=== PATIENT | female | born 1985 | race Caucasian/White ===

== ENCOUNTER 2017-04-19 01:51 | Emergency (ER) | payer MEDICAID ==
[~2017-04-19] VITALS: Ht 160 cm; Wt 77.5 kg
[~2017-04-19 01:51] MED LIST: NITR100C6 PO; PHEN-716 PO
[2017-04-19] MEDS ORDERED: ketorolac trometh. 30mg/ml inj. IM ONE (02:15)
[2017-04-19 02:17] LABS: URINE HCG POSITIVE (NEG)
[2017-04-19 02:18] LABS: CLARITY,URINE CLEAR (Clear); GLUCOSE, URINE NEGATIVE (Neg); KETONES,URINE NEGATIVE (Neg); LEUKOCYTE ESTERASE ,URINE NEGATIVE (Neg); NITRITES, URINE POSITIVE (Neg); OCCULT BLOOD,URINE NEGATIVE (Neg); PROTEIN,URINE NEGATIVE (Neg); UA COLLECTION TYPE CLN CATCH MIDSTREAM; UROBILINOGEN,URINE 0.2 E.U/dL (0.2-1.0)
[2017-04-19 02:19] LABS: COLOR,URINE DARK YELLOW (Yellow)
[2017-04-19 02:24] LABS: RBC,URINE NONE SEEN /HPF (0-2); SQUAMOUS EPITHELIAL CELL,UR MODERATE /LPF (FEW); WBC,URINE 0-4 /HPF (0-4)
[2017-04-19 02:25] LABS: BACTERIA,URINE 2+ /HPF (Neg)
[2017-04-19] MEDS ORDERED: ondansetron 4mg rapidly disintigrating tab PO ONE (02:25)
[2017-04-19 05:56] VITALS: BP 123/81
== END 2017-04-19 05:59 | disposition home or self-care (01) ==
LOC: ER 01:52
DX: O26.891 Other specified pregnancy related conditions, first trimester (principal); M54.5 Low back pain; R30.0 Dysuria; R11.0 Nausea; I10 Essential (primary) hypertension; E78.00 Pure hypercholesterolemia, unspecified; Z3A.01 Less than 8 weeks gestation of pregnancy; Z88.1 Allergy status to other antibiotic agents; Z88.2 Allergy status to sulfonamides; Z88.5 Allergy status to narcotic agent
CPT/HCPCS: 36415; 76801; 81001; 81025; 84702; 86900; 86901; 87088; 96372; 99285; J1885

== ENCOUNTER 2018-06-11 11:47 | Emergency (ER) | payer MEDICAID ==
[~2018-06-11] VITALS: Ht 160 cm; Wt 94.2 kg
[2018-06-11] MEDS ORDERED: CYCL-1 PO (13:23)
[2018-06-11] MEDS ORDERED: ketorolac trometh inj. 60 MG/2 ML VIAL IM ONE (13:50)
[2018-06-11] MEDS ORDERED: METH4TAB81 PO (13:50)
[2018-06-11] MEDS ORDERED: dexamethasone sod phosphate 10mg/ml inj IM STA (13:50)
[2018-06-11 14:30] VITALS: BP 133/83
== END 2018-06-11 14:31 | disposition home or self-care (01) ==
LOC: ER 11:47
DX: M54.5 Low back pain (principal); G43.909 Migraine, unspecified, not intractable, without status migrainosus; I10 Essential (primary) hypertension; E78.00 Pure hypercholesterolemia, unspecified; Z88.1 Allergy status to other antibiotic agents; Z88.6 Allergy status to analgesic agent; Z88.8 Allergy status to other drugs, medicaments and biological substances
CPT/HCPCS: 72100; 96372; 99283; J1100; J1885

== ENCOUNTER 2019-06-12 19:47 | Emergency (ER) | payer MEDICAID ==
[~2019-06-12] VITALS: Ht 160 cm; Wt 100.0 kg
[~2019-06-12 19:47] MED LIST changes: +CYCL-1 PO; +METH4TAB81 PO
[2019-06-12 19:51] VITALS: BP 160/108
--- NOTE | 2019-06-12 20:34 | NUR ---
PT C/O HEADACHE SINCE 299, +NAUSEA, "TICKLE IN THROAT", COUGH, NO RELIEF WITH OTC GENERIC HEADACHE MEDICATION, PT IS ALERT, RESP EVEN AND UNLABORED, SKIN P/W/D
[2019-06-12 20:36] LABS: BASOPHILS # (AUTO) 0.1 X10'3 (0-0.2); BASOPHILS % (AUTO) 0.8 % (0-1); EOSINOPHILS # (AUTO) 0.2 X10'3 (0-0.9); EOSINOPHILS % (AUTO) 3.5 % (0-6); HEMATOCRIT 42.7 % (35.0-45.0); HEMOGLOBIN 14.7 g/dl (12.0-16.0); LYMPHOCYTES # (AUTO) 1.3 X10'3 (1.1-4.8); LYMPHOCYTES % (AUTO) 19.6 % (21-51); MEAN CORPUSCULAR HEMOGLOBIN 32.1 PG (27.0-31.0); MEAN CORPUSCULAR HGB CONC 34.5 g/dL (33.0-36.5); MEAN CORPUSCULAR VOLUME 93.1 FL (78-98); MEAN PLATELET VOLUME 8.1 FL (7.4-10.4); MONOCYTES # (AUTO) 0.7 X10'3 (0-0.9); NEUTROPHILS # (AUTO) 4.3 X10'3 (1.8-7.7); NEUTROPHILS % (AUTO) 65.1 % (42-75); PLATELET COUNT 280 X10'3 (140-440); RED BLOOD COUNT 4.58 X10'6 (4.20-5.60); WHITE BLOOD COUNT 6.6 X10'3 (4.5-11.0)
[2019-06-12 20:50] LABS: ALANINE AMINOTRANSFERASE 39 U/L (12-78); ALBUMIN/GLOBULIN RATIO 1.3 (1.1-1.5); ALKALINE PHOSPHATASE 55 IU/L (46-116); ANION GAP 7 (8-16); ASPARTATE AMINO TRANSFERASE 23 U/L (10-37); BILIRUBIN,TOTAL 0.3 MG/DL (0.1-1.0); BLOOD UREA NITROGEN 8 MG/DL (7-18); BUN/CREATININE RATIO 7.5 (6.6-38.0); CALCIUM 9.2 MG/DL (8.5-10.1); CHLORIDE 106 MMOL/L (99-107); CREATININE 1.06 MG/DL (0.40-0.90); GLUCOSE 69 MG/DL (70-104); POTASSIUM 3.7 MMOL/L (3.5-5.1); SODIUM 141 MMOL/L (135-145); TOTAL CARBON DIOXIDE 27.7 MMOL/L (24-32); TOTAL PROTEIN 7.2 G/DL (6.4-8.2); eGFR 59 ML/MIN
[2019-06-12] MEDS ORDERED: ketorolac tromethamine 15mg/ml inj. IM ONE (21:20)
[2019-06-12] MEDS ORDERED: FLUT16SP13 BOTHNARES (21:25)
== END 2019-06-12 22:08 | disposition home or self-care (01) ==
LOC: ER 19:47
DX: J06.9 Acute upper respiratory infection, unspecified (principal); E78.00 Pure hypercholesterolemia, unspecified; I10 Essential (primary) hypertension; Z88.2 Allergy status to sulfonamides; Z88.1 Allergy status to other antibiotic agents; Z88.5 Allergy status to narcotic agent; Z79.899 Other long term (current) drug therapy
CPT/HCPCS: 36415; 71046; 80053; 85025; 96372; 99284; J1885

== ENCOUNTER 2020-07-03 10:53 | Emergency (ER) | payer MEDICAID ==
[~2020-07-03] VITALS: Ht 160 cm; Wt 105.9 kg
[~2020-07-03 10:53] MED LIST changes: +FLUT16SP13 BOTHNARES
[2020-07-03 10:59] VITALS: BP 167/104
[2020-07-03] MEDS ORDERED: proparacaine 0.5% ophthalmic drops 15ml EACHEYE ONE (12:45)
[2020-07-03] MEDS ORDERED: TOBR5DRO57 LEFTEYE (13:22)
== END 2020-07-03 13:28 | disposition home or self-care (01) ==
LOC: ER 10:54
DX: S05.02XA Injury of conjunctiva and corneal abrasion without foreign body, left eye, initial encounter (principal); G43.909 Migraine, unspecified, not intractable, without status migrainosus; E78.00 Pure hypercholesterolemia, unspecified; I10 Essential (primary) hypertension; Z87.440 Personal history of urinary (tract) infections; Z88.1 Allergy status to other antibiotic agents; Z88.5 Allergy status to narcotic agent; Z88.2 Allergy status to sulfonamides; Z79.2 Long term (current) use of antibiotics; Z79.899 Other long term (current) drug therapy; X58.XXXA Exposure to other specified factors, initial encounter; Y93.9 Activity, unspecified; Y92.89 Other specified places as the place of occurrence of the external cause; Y99.8 Other external cause status
CPT/HCPCS: 99283

== ENCOUNTER 2022-05-19 12:24 | Emergency (ER) | payer MEDICAID ==
[~2022-05-19] VITALS: Ht 160 cm; Wt 109.1 kg
[2022-05-19 12:46] LABS: BASOPHILS % (AUTO) 0.5 % (0-1); EOSINOPHILS # (AUTO) 0.2 X10'3 (0-0.9); EOSINOPHILS % (AUTO) 2.8 % (0-6); HEMATOCRIT 43.2 % (35.0-45.0); HEMOGLOBIN 14.4 g/dl (12.0-16.0); LYMPHOCYTES # (AUTO) 2.3 X10'3 (1.1-4.8); LYMPHOCYTES % (AUTO) 27.2 % (21-51); MEAN CORPUSCULAR HEMOGLOBIN 30.7 PG (27.0-31.0); MEAN CORPUSCULAR HGB CONC 33.3 g/dL (33.0-36.5); MEAN CORPUSCULAR VOLUME 92.2 FL (78-98); MEAN PLATELET VOLUME 7.8 FL (7.4-10.4); MONOCYTES # (AUTO) 0.8 X10'3 (0-0.9); MONOCYTES % (AUTO) 9.4 % (2-12); NEUTROPHILS % (AUTO) 60.1 % (42-75); PLATELET COUNT 296 X10'3 (140-440); RED BLOOD COUNT 4.69 X10'6 (4.20-5.60); RED CELL DISTRIBUTION WIDTH 12.9 % (11.5-14.5); WHITE BLOOD COUNT 8.3 X10'3 (4.5-11.0)
[2022-05-19 13:01] LABS: ALANINE AMINOTRANSFERASE 21 U/L (12-78); ALBUMIN 3.9 G/DL (3.4-5.0); ALBUMIN/GLOBULIN RATIO 1.2 (1.1-1.5); ALKALINE PHOSPHATASE 49 IU/L (46-116); ANION GAP 8 (8-16); ASPARTATE AMINO TRANSFERASE 14 U/L (10-37); BILIRUBIN,TOTAL 0.4 MG/DL (0.1-1.0); BLOOD UREA NITROGEN 7 MG/DL (7-18); CALCIUM 9.2 MG/DL (8.5-10.1); CHLORIDE 105 MMOL/L (99-107); CREATININE 0.88 MG/DL (0.40-0.90); GLUCOSE 113 MG/DL (70-104); POTASSIUM 3.8 MMOL/L (3.5-5.1); SODIUM 137 MMOL/L (135-145); TOTAL CARBON DIOXIDE 24.2 MMOL/L (24-32); TOTAL PROTEIN 7.2 G/DL (6.4-8.2); eGFR 72 ML/MIN
[2022-05-19 13:10] LABS: MAGNESIUM 2.2 MG/DL (1.5-2.4)
[2022-05-19 14:05] VITALS: BP 121/76
== END 2022-05-19 14:08 | disposition home or self-care (01) ==
LOC: ER 12:24
DX: M25.511 Pain in right shoulder (principal); R07.89 Other chest pain; G43.909 Migraine, unspecified, not intractable, without status migrainosus; E78.00 Pure hypercholesterolemia, unspecified; I10 Essential (primary) hypertension; Z87.891 Personal history of nicotine dependence; Z88.1 Allergy status to other antibiotic agents; Z88.2 Allergy status to sulfonamides; Z88.5 Allergy status to narcotic agent; Z79.899 Other long term (current) drug therapy
CPT/HCPCS: 36415; 71045; 80053; 83735; 83880; 85025; 93005; 99285

== ENCOUNTER 2022-08-28 15:22 | Emergency (ER) | payer MEDICAID ==
[~2022-08-28] VITALS: Ht 160 cm; Wt 109.0 kg
[2022-08-28 15:27] VITALS: BP 154/94
[2022-08-28] MEDS ORDERED: ketorolac trometh inj. 60 MG/2 ML VIAL IM ONE (15:55)
[2022-08-28] MEDS ORDERED: IBUP-1985 PO (15:57)
[2022-08-28] MEDS ORDERED: HYDR-3965 PO (15:57)
== END 2022-08-28 16:17 | disposition home or self-care (01) ==
LOC: ER 15:23
DX: M54.50 Low back pain, unspecified (principal); G43.909 Migraine, unspecified, not intractable, without status migrainosus; E78.00 Pure hypercholesterolemia, unspecified; I10 Essential (primary) hypertension; Z88.1 Allergy status to other antibiotic agents; Z88.2 Allergy status to sulfonamides; Z88.5 Allergy status to narcotic agent
CPT/HCPCS: 96372; 99283; J1885

== ENCOUNTER 2024-12-12 02:57 | Emergency (ER) | payer MEDICAID ==
[~2024-12-12] VITALS: Ht 160 cm; Wt 101.7 kg
[~2024-12-12 02:57] MED LIST changes: +IBUP600T52 PO
[2024-12-12 02:59] VITALS: TEMP 97.4
--- NOTE | 2024-12-12 06:03 | Physician Documentation ---
History of Present Illness General Chief Complaint: Headache Stated Complaint: MIGRAINE Time Seen by MD: 06:01 OK to notify your PCP?: No Primary Medical Doctor: [facility] Source: patient, RN notes reviewed Mode of Arrival: POV Exam Limitations: no limitations History of Present Illness Initial Comments 39 year old female, with history of chronic migraine headaches, presents complaining of a migraine that began 2 days ago after a Wegovy injection. Patient reports this medication causes her to have nausea and vomiting, which s he believes started her migraine. She has had similar headaches in the past, but "not for a while." In the past, patient has had toradol and benadryl in the ER with relief. She denies weakness of her extremities, vision loss, difficulty speaking, fever, or neck pain. Medication Reconciliation Allergies: Coded Allergies: Cephalexin Monohydrate (Verified Allergy, Severe, 06/11/18) Sulfa (Sulfonamide Antibiotics) (Verified Allergy, Severe, 06/11/18) codeine (Verified Allergy, Severe, 06/11/18) morphine (Verified Allergy, Unknown, 06/11/18) Scheduled Fluticasone Propionate (Fluticasone Propionate), 2 SPRAYS BOTHNARES DAILY Ibuprofen (Ibuprofen), 1 TAB PO Q8H Methylprednisolone (Medrol Dosepak), 4 MG PO DAILY Nitrofurantoin Monohyd/M-Cryst (Macrobid 100 mg Capsule), 1 CAP PO Q12H Phenazopyridine HCl (Pyridium), 1 TAB PO Q8H Scheduled PRN Cyclobenzaprine* (Cyclobenzaprine*), 1 TABLET PO Qhs PRN for muscle spasms Past Medical History Past Medical History: Migraine, High Cholesterol, Hypertension, UTI Past Surgical History: no surgical history Smoking: Non-Smoker Alcohol Use: None Drug Use: none Lives In: Home Occupation: employed Review of Systems All Other Systems at this time: Reviewed and Negative ROS headache as well as other positive symptoms as stated above in the HPI, otherwise all systems are reviewed and negative. Physical Exam Physical Exam Vital Signs: RN Vital Signs have been reviewed: Yes, Temperature: 97.4, Heart Rate: 98, Respiratory Rate: 18, BP: 159/109, Pulse Oximetry: 98, Weight: 101.700 Oxygen Flow Rate: 0 Pulse Oximetry Reflects: adequate oxygenation Physical Exam VITALS: Reviewed and as above. GENERAL: Alert, no apparent distress. HEENT: Normocephalic, atraumatic, PERRL, EOMI, dry mucosa, no erythema RESPIRATORY: Lungs clear, normal breath sounds, no respiratory distress. CHEST: No accessory muscle use, no retractions CV: Regular rate, rhythm, no edema, no murmur, No: JVD GI: Soft, non-tender, bowels sounds present, no rebound, guarding, or rigidity MUSCULOSKELETAL No deformities, no edema SKIN: Warm and dry, no rash NEURO: Oriented x4, No motor or sensory deficit. Cranial nerves II-XII intact. Normal strength to all 4 extremities. PSYCH: Normal mood and affect, no agitation Progress Results/Orders Results/Orders Completed Orders - OHLFS,GILMA Maza MD Normal Saline 1000ml (0.9% Sodium Chlori (12/12/24 06:20) Metoclopramide Inj (Reglan Inj) (12/12/24 06:20) Diphenhydramine Inj (Benadryl Inj.) (12/12/24 06:20) Ketorolac Trometh 15mg/Ml Vial (Toradol (12/12/24 06:20) Medical Decision Making Additional info obtained from: old records (last seen in 2022 for back pain) Findings The patient is a 39-year-old female complains of nausea vomiting headache, the patient has a normal neurologic exam she is otherwise well-appearing slightly dehydrated. The patient has no neurologic deficits. The patient was treated in the IV in the emergency room for slight dehydration with IV fluids and she was given a migraine cocktail for headache, with good resolution her labs have been reviewed her prior hospitalizations have been reviewed. The patient had improvement she has going to be discharged in the emergency room with instructions to return if she develops any worsening. Her pulse oximetry was interpreted as normal and adequate and her equipment monitor phototypesetting was interpreted as a sinus rhythm. Departure Time of Disposition: 07:19 Disposition: 01 HOME / SELF CARE / HOMELESS Impression: Primary Impression: Migraine Qualified Codes: G43.909 - Migraine, unspecified, not intractable, without status migrainosus Condition: Stable Discharge Instructions: Migraine Headache Additional Instructions: Drink plenty of fluids. Rest. Return to the ER for new or worsening symptoms or other concerns. Education Educated: Patient Educated regarding: diagnosis, treatment, need for follow up Signature Scribe Signature: Scribed for Ohlfs,Gilma R MD by Bowen Lei . 12/12/24 06:43 Attestation: The note accurately reflects work and decisions made by me.Gilma Leonard MD 12/18/24 10:09 GILMA LEONARD MD Dec 12, 2024 06:03 BOWEN BRAUN Dec 12, 2024 06:50
[2024-12-12] MEDS: metoclopramide 5 mg/ml inj IV ONE (06:39)
[2024-12-12] MEDS: ketorolac trometh 15mg/ml vial 15 MG/ML ML IV ONE (06:41)
[2024-12-12] MEDS: normal saline 1000ML IV soln IVB ONE (06:41)
[2024-12-12 06:44] VITALS: BP 137/103; PULSE 102; RESP 16; O2SAT 97
== END 2024-12-12 07:36 | disposition home or self-care (01) ==
LOC: ER 02:58
DX: G43.909 Migraine, unspecified, not intractable, without status migrainosus (principal); E78.00 Pure hypercholesterolemia, unspecified; I10 Essential (primary) hypertension; Z88.1 Allergy status to other antibiotic agents; Z88.2 Allergy status to sulfonamides; Z88.5 Allergy status to narcotic agent; Z79.899 Other long term (current) drug therapy
CPT/HCPCS: 96361; 96374; 96375; 99284; J1200; J1885; J2765; J7030